=== PATIENT | female | born 1990 | race Caucasian/White ===

== ENCOUNTER 2016-08-09 23:08 | Emergency (ER) | payer BC, MEDICAID ==
[2016-08-09 23:44] LABS: Hematocrit 38.2 % (37.0-47.0); Hemoglobin 13.5 gm/dL (12.5-16.0); Mean Cell Volume 84.3 fl (78-100); Mean Corpuscular Hemoglobin 29.8 pg (27-31); Mean Corpuscular Hgb Conc 35.3 g/dl (32-36); Mean Platelet Volume 10.4 fl (6.0-9.5); Neutrophil # 5.8 K/mm3 (1.3-6.0); Neutrophil % 72.8 % (42-75.0); Platelet Count 222 K/mm3 (150-450); Red Blood Count 4.53 M/mm3 (4.2-5.4); Red Cell Distribution Width 13.3 % (11.5-14.0)
[2016-08-09 23:45] LABS: Urine Bilirubin Negative (NEGATIVE); Urine Ketone Negative (NEGATIVE); Urine Nitrite Negative (NEGATIVE); Urine Protein Negative (NEGATIVE); Urine Specific Gravity >=1.030 SP.GR. (1.005-1.010); Urine Urobilinogen Normal (NORMAL)
[2016-08-09 23:52] LABS: Urine Appearance Clear; Urine Blood 10 /ul (NEGATIVE); Urine Color Yellow; Urine WBC None Seen /hpf (0-5)
[2016-08-09 23:53] LABS: Urine Bacteria TRACE; Urine RBC TRACE /hpf (0-5)
[2016-08-09 23:58] LABS: Albumin * 2.8 gm/dl (3.4-5.0); Anion Gap 17.2 mmol/L (6.8-13.8); BUN/Creatinine Ratio 11.8 (9.0-21.6); Bilirubin, Total 0.2 mg/dL (0.0-1.1); Ca. Corrected For Albumin 9.5 mg/dL (8.4-10.2); Calcium * 8.9 mg/dL (7.9-10.9); Carbon Dioxide 21.7 mmol/L (24-32.6); Potassium 3.9 mmol/L (3.4-4.6); Total Protein 7.3 gm/dL (6.2-8.2)
--- OUTSIDE RECORDS SUMMARY | 2016-08-10 00:16 | XMS REPORT | Continuity of Care Document ---
:1990 Author Organization [facility] [place] [address] Care Team Providers Name Role Phone Tristan Courtney Primary Care Provider [phone] Source Comments This disclosure is being made pursuant to the [employer] program and maynot contain all information available regarding this patient.[facility] Active Allergies and Adverse Reactions Allergen Noted Date Severity Reactions Comments Benadryl 10/30/2014 High Other (See Comments),Swelling Codeine 10/30/2014 Other (See Comments) Current Medications Be aware that medications may not be up to date as of this document. Alwaysverify current medications with the patient. Prescription Sig. Disp. Refills Start Date End Date Status cetirizine (ZYRTEC) 10 Take 10 mg by Active MG tablet mouth daily. montelukast Take 1 tablet by 30 tablet 11 10/30/2014 Active (SINGULAIR) 10 MG mouth daily as tablet needed. fluticasone (FLONASE) 0 12/05/2014 Active 50 MCG/ACT nasal spray Vitamin D 400 UNITS Take by mouth. Active capsule Vitamins/Minerals TABS Take by mouth. Active triamcinolone Apply bid 45 g 5 09/02/2015 Active (KENALOG) 0.1 % cream sparingly to affected skin prn olopatadine (PATANOL) Place 1 drop into 5 mL 11 09/30/2015 Active 0.1 % ophthalmic both eyes 2 (two) solution times daily. 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 Immunizations Name Dates Previously Given Next Due DTP 01/05/1996,01/29/1993,1991,1991 Hep B, Adolescent Or Pediatric 11/01/1996,04/05/1996,02/02/1996 HiB PRP-D 10/30/1992,1991,1991,1991 MMR 01/05/1996,10/30/1992 OPV 01/05/1996,01/29/1993,1991,1991 Social History Tobacco Use Types Packs/Day Years Used Date Never Smoker Last Filed Vital Signs Vital Sign Reading Time Taken Blood Pressure 132/76 09/02/2015 1:59 PM CDT Pulse 74 09/02/2015 1:59 PM CDT Temperature - - Respiratory Rate 20 09/02/2015 1:59 PM CDT Height 1.651 m (5' 5") 09/02/2015 1:59 PM CDT Weight 154.949 kg (341 lb 9.6 oz) 09/02/2015 1:59 PM CDT Body Mass Index 56.85 09/02/2015 1:59 PM CDT Oxygen Saturation - - Plan of Care Date Type Specialty Providers Description 09/03/2016 Appointment Allergy John Salinas MD [address] [place] [address] [phone] (Fax) Health Maintenance Due Date Last Done Comments HPV Vaccine (9-26YO) (1 of 3 2002 - Female 3 Dose Series) Tetanus/Pertussis (1 - Tdap) 2010 01/05/1996, Additional history exists 01/29/1993, 1991 Pap Smear 2012 Influenza Immunization (#1) 2016 Results from Last 3 Months Not on file
[2016-08-10] MEDS ORDERED: OSELTAMIVIR PHOSPHATE 75 MG CAPSULE PO ONE ×2 (00:22→01:17)
--- NOTE | 2016-08-10 00:23 | ERNOTE ---
Time Seen by Provider: 08/09/16 23:14 Stated Complaint: "I'M SICK" Presenting Symptoms:: cough, other - body aches Immunizations: IMMUNIZATION HX History of Influenza Vaccine No Hx Pneumococcal Vaccination No Allergies/Adverse Reactions: Allergies codeine Allergy (Verified 08/09/16 23:23) diphenhydramine HCl [From Benadryl] Allergy (Verified 08/09/16 23:23) Home Medications: HOME MEDICATIONS Pnv95/Ferrous Fumarate/FA [ Tablet] 1 tab PO DAILY 08/09/16 [Last Taken Unknown] metFORMIN HCL [Glucophage] 3 tab PO DAILY 08/09/16 [Last Taken Unknown] Oseltamivir Phosphate [Tamiflu] 75 mg PO BID 5 Days 08/10/16 [Last Taken Unknown ] - History of Present Ilness Narrative: 26-year-old female at 33 weeks of gestation length to our emergency room for cough congestion and body aches. She denies any vaginal bleeding or vaginal complaints. sHe states that she feels feverish however has not taken any medication for her fever Review of Systems - Review of Systems Constitutional: Present: chills, other - body aches EYE: Present: no symptoms reported ENT: Present: nose congestion, sore throat Respiratory: Present: See HPI Cardiology: Present: no symptoms reported Gastrointestinal/Abdominal: Present: no symptoms reported Genitourinary: Present: no symptoms reported Musculoskeletal: Present: other - myalgias and body aches Skin: Present: no symptoms reported - Patient's Past Medical History Patient History - Medical: No pertinent hx, Anxiety Patient History - Surgical Procedures: Other Patient History - Other: None LMP (females 10-50): LMP (Calendar): 01/23/16 - Social History Living Situations: home Psych History: Hx of Anxiety Smoking Status: Former smoker Have you smoked in the past 12 months: No Alcohol Use: none Drug Use: none - Immunizations Hx Pneumococcal Vaccination: No History of Influenza Vaccine: No Physical Exam - Physical Exam General Appearance: Present: wd/wn, alert, no apparent distress, other - patient is gravid and has morbid obesity Eye Exam: Normal inspection: bilateral, PERRL: bilateral, EOMI: bilateral Ears, Nose, Throat: Present: normal ENT inspection Neck: Present: normal inspection, nontender, supple, full range of motion Respiratory: Present: no respiratory distress, normal breath sounds, no accessory muscle use, chest nontender, lungs clear - patient does have a productive cough. However she is in no respiratory distress. There is no wheezing. Cardiovascular/Chest: Present: regular rate, rhythm, no murmur, normal peripheral pulses Gastrointestinal/Abdominal: Present: normal bowel sounds Extremity Exam: Present: normal inspection ED Progress - Results and Orders Patient's Lab Results:: I have reviewed the patient's lab results. - Vital Signs Patient's Vital Signs:: I have reviewed the patient's vital signs. Vital Signs: Vital Signs 08/09/16 08/09/16 08/10/16 23:12 23:31 00:05 Temperature 37.3 C 37.7 C H Pulse Rate 129 H 110 H Respiratory 18 22 H Rate Blood Pressure 153/90 140/90 130/86 O2 Sat by Pulse 97 96 Oximetry - Progress/Reassessment Chief Complaint: Upper Respiratory Symptoms Plan - Plan Plan: This patient's test results are positive for influenza B she will be treated with Tamiflu. Dr. Ernst was consulted in reverse of this patient patient will be getting an NST here in the ER. NST was reactive and pt is to be discharged home. The initial BP of 153/93 is erroneous. a manual BP is 140/90. repeat BP is 138/ 86 Departure - Departure Clinical Impression: Influenza B Disposition: Home self-care Condition: Good Instructions: Influenza, Adult, [id number] Referrals: Car Valadez DO [Primary Care Provider] - Prescriptions: Oseltamivir Phosphate [Tamiflu] 75 mg PO BID 5 Days
[2016-08-10 01:24] VITALS: BP 128/82
[2016-08-10] MEDS ORDERED: ACETAMINOPHEN 500 MG TABLET PO ONE (01:28)
== END 2016-08-10 01:29 | disposition home or self-care (01) ==
LOC: ER 23:08
DX: R05 Cough (principal); J10.1 Influenza due to other identified influenza virus with other respiratory manifestations; Z33.1 Pregnant state, incidental; Z3A.33 33 weeks gestation of pregnancy

== ENCOUNTER 2016-09-21 00:11 | Inpatient (IN) | payer BC, MEDICAID ==
[2016-09-21] MEDS ORDERED: LIDOCAINE HCL 50 ML VIAL PERI PRN (00:14)
[2016-09-21] MEDS ORDERED: OXYTOCIN/DEXTROSE 5%-WATER 30 UNITS/500 ML BAG IV ONE ×2 (00:14→15:13)
[2016-09-21] MEDS ORDERED: RINGERS SOLUTION,LACTATED 1,000 ML IV ONE ×2 (00:14→12:38)
[2016-09-21] MEDS ORDERED: PENICILLIN G POTASSIUM 5 MILLIONUNT in DEXTROSE 5 % IN WATER 100 ML IV ONE ×2 (00:14)
[2016-09-21] MEDS ORDERED: ONDANSETRON HCL/PF 2 MG/ML VIAL IV PRN ×2 (00:14→11:27)
--- OUTSIDE RECORDS SUMMARY | 2016-09-21 00:15 | XMS REPORT | Continuity of Care Document ---
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
[2016-09-21] MEDS: DEXTROSE 5%-LACTATED RINGERS 1,000 ML IV PRN ×3 (01:19→13:56)
[2016-09-21] MEDS: PENICILLIN G POTASSIUM 2.5 MILLIONUNT in DEXTROSE 5 % IN WATER 100 ML IV SCH ×6 (04:43→12:20)
--- NOTE | 2016-09-21 08:53 | PN ---
Progess Note - Interim Narrative: 09/21/16 08:50 Patient tolerating contractions and denying any signs or symptoms of preeclampsia Vital signs stable. Pitocin at 15 mu/min. FHT: 140 baseline, reassuring Contractions q 2-3 min Cervix: 3/90/-3, AROM-clear, IUPC and FSE placed due to inability to monitor either well due to maternal habitus Impression: Intrauterine at 39 weeks induction of labor for chronic hypertension. Blood pressures elevated the past 15-20 minutes since breaking her water Plan: We'll check preeclamptic labs and treat blood pressures as needed. 09/21/16 08:53
[2016-09-21 09:15] LABS: Hematocrit 36.9 % (37.0-47.0); Mean Cell Volume 84.2 fl (78-100); Mean Corpuscular Hemoglobin 29.7 pg (27-31); Mean Corpuscular Hgb Conc 35.2 g/dl (32-36); Mean Platelet Volume 11.1 fl (6.0-9.5); Neutrophil # 8.5 K/mm3 (1.3-6.0); Platelet Count 225 K/mm3 (150-450); Red Blood Count 4.38 M/mm3 (4.2-5.4); Red Cell Distribution Width 13.6 % (11.5-14.0); White Blood Count 12.7 K/mm3 (4.0-10.5)
[2016-09-21 09:31] LABS: Albumin * 2.5 gm/dl (3.4-5.0); Anion Gap 15.5 mmol/L (6.8-13.8); BUN/Creatinine Ratio 8.5 (9.0-21.6); Bilirubin, Total 0.3 mg/dL (0.0-1.1); Ca. Corrected For Albumin 9.6 mg/dL (8.4-10.2); Calcium * 8.7 mg/dL (7.9-10.9); Carbon Dioxide 23.3 mmol/L (24-32.6); Potassium 3.8 mmol/L (3.4-4.6); Total Protein 6.8 gm/dL (6.2-8.2)
[2016-09-21 09:44] LABS: Random Urine Total Protein 25.7 mg/dL (0-12)
[2016-09-21] MEDS ORDERED: BUPIVACAINE HCL/0.9 % NACL/PF 250 ML EP PRN (11:27)
[2016-09-21] MEDS ORDERED: NALOXONE HCL 1 MG/1 ML SYRG IV PRN (11:27)
[2016-09-21] MEDS ORDERED: fentaNYL CITRATE/PF 50 MCG/ML AMPUL IT SCH (11:30)
[2016-09-21] MEDS ORDERED: TERBUTALINE SULFATE 1 MG/ML VIAL ONE (14:30)
[2016-09-21] MEDS ORDERED: TERBUTALINE SULFATE 1 MG/ML VIAL SC ONE ×2 (14:30→14:35)
--- NOTE | 2016-09-21 15:06 | OR ---
Anesthesia Procedure Note - Anesthesia Procedure Note Narrative: Vital Signs - Last Taken Temp 36.6 C 09/21/16 11:30 Pulse 90 09/21/16 11:30 Resp 16 09/21/16 11:30 BP 143/98 09/21/16 11:30 Pulse Ox 100 09/21/16 11:30 09/21/16 15:05 ANESTHESIA PROCEDURE NOTE Date of Procedure: 09/21/2016 Time of procedure: 1145. Performed by: Gabo Reed CRNA Assistant Librarian: None. Preprocedure diagnosis: Active labor. Post procedure diagnosis: Same. Procedure: Insertion of labor epidural. Indications: The patient is a 26 -year-old multigravida female in active labor requesting labor epidural for pain management. Findings: See below. Details of the procedure: The patient was placed in a sitting position. Back was prepped with DuraPrep. Patient was then draped in a sterile fashion. Lidocaine 1% was infiltrated to the skin and subcutaneous tissues at the level of the L3 4 interspace. The epidural space was identified using a 18-gauge Tuohy needle with luxm-[id number] technique. 20 mcg fentanyl was given intrathecally using a 27 ga. spinal needle. Epidural catheter was inserted without difficulty. Negative test dose was elicited using 5 mL of 1.5% preservative-free lidocaine plus epinephrine 1 200,000. The epidural catheter was then taped and secured in place. EBL: Minimal. Fluids: N/A. Specimen: N/A. Post procedure condition: The patient tolerated the procedure well. No complications were noted. Thank you for this consultation. Morales CRNA
--- NOTE | 2016-09-21 15:09 | OR ---
Operative Report - Dictated Report Narrative: Spontaneous vaginal delivery of viable male in an АННА position with compound right arm presentation born at 1445 on 09/21/2015 with Apgars 9 and 9, weighing 3474 g. Cord clamping delayed approximately 1 minute Placenta delivered complete, intact, with three vessel cord Estimated blood loss: 200 mL due to uterine atony which responded to 30 milliunits of Pitocin and 200 g of Cytotec rectally 1. Lacerations: None History for MU Definition: * The number of deliveries resulting in a live the patient experienced prior to current hospitalization * The previous delivery of live twins or any live multiple gestation is considered one live event. *If primagravida or nulliparous is documented select zero for the number of previous live births. Live Events: 1
[2016-09-21] MEDS ORDERED: SENNOSIDES 8.6 MG TABLET PO PRN (15:13)
[2016-09-21] MEDS ORDERED: HYDROCORTISONE 30 APPL TUBE TP PRN (15:13)
[2016-09-21] MEDS ORDERED: GLYCERIN/WITCH HAZEL LEAF 40 APPL BOX TP PRN (15:13)
[2016-09-21] MEDS ORDERED: BENZOCAINE/MENTHOL 81 SPRAY CAN TP PRN (15:13)
[2016-09-21] MEDS ORDERED: BISACODYL 10 MG SUPP.RECT RC PRN (15:13)
[2016-09-21] MEDS ORDERED: oxyCODONE HCL/ACETAMINOPHEN 1 TAB TABLET PO PRN (15:13)
[2016-09-21] MEDS ORDERED: MISOPROSTOL 200 MCG TABLET PO ONE (15:35)
[2016-09-21] MEDS: IBUPROFEN 800 MG TABLET PO PRN (17:15)
[2016-09-21] MEDS: oxyCODONE HCL/ACETAMINOPHEN 1 TAB TABLET PO PRN (18:46)
[2016-09-21] MEDS ORDERED: NON-FORMULARY 1 DOSE DOSE (Metformin Hcl [Metformin Hcl Er] 1,000 MG) PO SCH (21:00)
[2016-09-22] MEDS: oxyCODONE HCL/ACETAMINOPHEN 1 TAB TABLET PO PRN ×4 (00:29→17:57)
[2016-09-22] MEDS: DOCUSATE SODIUM 100 MG CAPSULE PO SCH ×2 (00:47→09:25)
[2016-09-22] MEDS ORDERED: PNV95 PO SCH (09:00)
[2016-09-22] MEDS ORDERED: FOLIC ACID PO SCH (09:00)
[2016-09-22] MEDS ORDERED: IRON FUM PO SCH (09:00)
[2016-09-22] MEDS ORDERED: NON-FORMULARY 1 DOSE DOSE (Cholecalciferol (Vitamin D3) [Vitamin D3] 1,000 UNIT) PO SCH (09:00)
[2016-09-22] MEDS: IBUPROFEN 800 MG TABLET PO PRN ×2 (09:24→17:57)
[2016-09-22] MEDS: PRENATAL VIT#96/FERROUS FUM/FA 1 TAB TABLET PO SCH (09:25)
[2016-09-22] MEDS: CHOLECALCIFEROL 1,000 UNIT CAPSULE PO SCH (09:25)
[2016-09-22] MEDS: PYRIDOXINE HCL (VITAMIN B6) 25 MG TABLET PO SCH (09:25)
[2016-09-22] MEDS: CETIRIZINE HCL 10 MG PO SCH (09:26)
[2016-09-23] MEDS: DOCUSATE SODIUM 100 MG CAPSULE PO SCH ×3 (03:01→10:32)
[2016-09-23] MEDS: IBUPROFEN 800 MG TABLET PO PRN ×2 (03:02→14:03)
[2016-09-23] MEDS: oxyCODONE HCL/ACETAMINOPHEN 1 TAB TABLET PO PRN ×2 (03:02→14:03)
[2016-09-23 08:29] VITALS: BP 127/78
[2016-09-23] MEDS: CETIRIZINE HCL 10 MG PO SCH (10:31)
[2016-09-23] MEDS: PRENATAL VIT#96/FERROUS FUM/FA 1 TAB TABLET PO SCH (10:32)
[2016-09-23] MEDS: PYRIDOXINE HCL (VITAMIN B6) 25 MG TABLET PO SCH (10:32)
[2016-09-23] MEDS: CHOLECALCIFEROL 1,000 UNIT CAPSULE PO SCH (10:32)
--- NOTE | 2016-09-23 11:07 | PN ---
Subjective - Date and Time Seen Date: 09/22/16 Time: 08:15 Objective - Vitals Vitals: Last Vital Signs Temp 36.7 C 09/23/16 08:28 Pulse 77 09/23/16 08:28 Resp 16 09/23/16 08:28 BP 127/78 09/23/16 08:28 Pulse Ox 99 09/23/16 08:28 Patient denies complaints. Lochia wnl Abdomen - soft, nontender Uterus - firm, at umbilicus - 1 No calf tenderness Impression: day #1 - s/p spontaneous vaginal delivery. Chronic hypertension-stable. Insulin resistance-stable. Morbid obesity. Plan: Continue routine care. Metformin modified to 1000 mg daily.
--- NOTE | 2016-09-23 11:08 | PN ---
Subjective - Date and Time Seen Date: 09/23/16 Time: 11:07 Objective - Vitals Vitals: Last Vital Signs Temp 36.7 C 09/23/16 08:28 Pulse 77 09/23/16 08:28 Resp 16 09/23/16 08:28 BP 127/78 09/23/16 08:28 Pulse Ox 99 09/23/16 08:28 Patient denies complaints. Lochia wnl Abdomen - soft, nontender Uterus - firm, at umbilicus - 2 No calf tenderness Impression: day #2 - s/p spontaneous vaginal delivery. Chronic hypertension, morbid obesity, insulin resistance-all stable. Plan: Routine discharge instructions. Follow-up in the office in 1 week for blood pressure and Accu-Chek. Preeclampsia precautions.
== END 2016-09-23 16:45 | disposition home or self-care (01) | DRG 774 ==
LOC: OB 00:11 → UNDOADMIN 00:11 → MS 00:11 → UNDOADMIN 09-22 18:30
PROVIDERS: ADMIT Obstetrics & Gynecology; ATTEND Obstetrics & Gynecology
PROC: 10E0XZZ Delivery of Products of Conception, External Approach (ICD-10-PCS; principal; 2016-09-21)
PROC: 3E033VJ Introduction of Other Hormone into Peripheral Vein, Percutaneous Approach (ICD-10-PCS; 2016-09-21)
PROC: 10907ZC Drainage of Amniotic Fluid, Therapeutic from Products of Conception, Via Natural or Artificial Opening (ICD-10-PCS; 2016-09-21)
PROC: 4A1H7CZ Monitoring of Products of Conception, Cardiac Rate, Via Natural or Artificial Opening (ICD-10-PCS; 2016-09-21)
PROC: 10H073Z Insertion of Monitoring Electrode into Products of Conception, Via Natural or Artificial Opening (ICD-10-PCS; 2016-09-21)
PROC: 3E0S3CZ (ICD-10-PCS; 2016-09-21)
DX: O10.92 Unspecified pre-existing hypertension complicating childbirth (principal); O72.1 Other immediate postpartum hemorrhage; Z68.43 Body mass index [BMI] 50.0-59.9, adult; O99.824 Streptococcus B carrier state complicating childbirth; O99.214 Obesity complicating childbirth; E66.01 Morbid (severe) obesity due to excess calories; E88.81 Metabolic syndrome and other insulin resistance; Z3A.39 39 weeks gestation of pregnancy; Z37.0 Single live birth